=== PATIENT | female | born 1990 | race Caucasian/White ===

== ENCOUNTER 2017-07-01 18:13 | Emergency (ER) | payer OTHER ==
[~2017-07-01] VITALS: Ht 170.2 cm; Wt 49.9 kg
[~2017-07-01 18:13] MED LIST: NAPROSYN500 MG PO; PENICILLIN V P500 MG PO
[2017-07-01 18:19] VITALS: BP 123/86
[2017-07-01] MEDS ORDERED: BENADRYL25 MG PO (18:23)
== END 2017-07-01 19:18 | disposition left against medical advice (07) ==
LOC: M.ERS 18:13
DX: Z53.21 Procedure and treatment not carried out due to patient leaving prior to being seen by health care provider (principal)